=== PATIENT | male | born 1955 | race Asian ===

== ENCOUNTER 2025-06-17 13:46 | Inpatient (IN) | payer OTHER, MEDICARE ==
[~2025-06-17] VITALS: Ht 172.7 cm; Wt 83.0 kg
[2025-06-17 17:00] VITALS: BP 180/84; PULSE 77; RESP 18; TEMP 98.1; O2SAT 98
[2025-06-17 17:37] VITALS: BP 176/82
[2025-06-17] MEDS ORDERED: DEXTROSE 50%-WATER 25 GM/50 ML SYRINGE IVP PRN (18:00)
[2025-06-17 18:30] VITALS: BP 149/76
[2025-06-17 20:00] VITALS: BP 157/77; PULSE 73; RESP 18; TEMP 98.2; O2SAT 99
[2025-06-17] MEDS: ETHYL ALCOHOL 62% ANTISEPTIC NASAL SANITIZER 0.6 ML AMPUL NASAL SCH (20:26)
[2025-06-17] MEDS: SENNOSIDES 8.6 MG TABLET PO SCH (20:26)
[2025-06-17] MEDS: ROSUVASTATIN CALCIUM 20 MG TABLET PO SCH (20:27)
[2025-06-17] MEDS: DOCUSATE SODIUM 100 MG CAPSULE PO SCH (20:27)
[2025-06-17] MEDS: LATANOPROST 0.005% 2.5 ML OPHTHALMIC SOLUTION OU SCH (20:27)
[2025-06-17] MEDS: INSULIN LISPRO 100 UNITS/ML SQ PRN (20:40)
[2025-06-17] MEDS: INSULIN GLARGINE,HUM.REC.ANLOG 100 UNITS/ML SQ SCH (20:41)
[2025-06-17] MEDS: MELATONIN 3 MG TABLET PO PRN (20:47)
[2025-06-17 21:11] LABS: GLUCOMETER DEV NAME(LOC) 2WR.1D; GLUCOSE,POINT OF CARE 231 MG/DL (70-110)
[2025-06-18 06:51] LABS: GLUCOMETER DEV NAME(LOC) 2WR.1D; GLUCOSE,POINT OF CARE 144 MG/DL (70-110)
[2025-06-18 07:39] LABS: PLATELET COUNT (AUTO) 240 K/uL (150-450); RED BLOOD CELL COUNT(AUTO) 4.69 MIL/uL (4.50-5.90); RED CELL DISTRIBUTION WIDTH 13.7 % (11.5-14.5); WHITE BLOOD COUNT (AUTO) 7.1 K/uL (4.5-11.0)
[2025-06-18 08:08] LABS: ASPARTATE AMINOTRANSFERASE 21 U/L (15-37); CALCIUM, TOTAL 8.9 mg/dL (8.8-10.5); CREATININE 1.01 mg/dL (0.60-1.30); GLOMERULAR FILTR. RATE CALC > 60 mL/min (>60); GLUCOSE,RANDOM 151 mg/dL (70-110); SODIUM SERUM 139 mmol/L (136-145); TOTAL PROTEIN, SERUM 6.7 g/dL (6.4-8.2); UREA NITROGEN, BLOOD 20 mg/dL (7-18)
[2025-06-18 08:15] VITALS: BP 150/78; PULSE 76; RESP 18; TEMP 98.2; O2SAT 96
[2025-06-18] MEDS: MetFORMIN HCL 500 MG ER TABLET PO SCH (08:35)
[2025-06-18] MEDS: ASPIRIN 81 MG CHEWABLE TABLET PO SCH (08:36)
[2025-06-18] MEDS: PIOGLITAZONE HCL 45 MG TABLET PO SCH (08:36)
[2025-06-18] MEDS: EMPAGLIFLOZIN 25 MG TABLET PO SCH (08:36)
[2025-06-18] MEDS: INSULIN GLARGINE,HUM.REC.ANLOG 100 UNITS/ML SQ SCH (08:39)
[2025-06-18 10:54] VITALS: O2SAT 96
[2025-06-18 12:26] LABS: GLUCOMETER DEV NAME(LOC) 2WR.1D; GLUCOSE,POINT OF CARE 119 MG/DL (70-110)
[2025-06-18 14:03] VITALS: BP 146/69; PULSE 77; RESP 18
[2025-06-18] MEDS: ACETAMINOPHEN 325 MG TABLET PO PRN (14:03)
[2025-06-18 18:15] LABS: GLUCOMETER DEV NAME(LOC) 2WR.1D; GLUCOSE,POINT OF CARE 96 MG/DL (70-110)
[2025-06-18 20:00] VITALS: BP 151/69; PULSE 77; RESP 18; TEMP 98.2; O2SAT 97
[2025-06-18] MEDS: TAMSULOSIN HCL 0.4 MG CAPSULE PO SCH (21:14)
[2025-06-18 21:55] LABS: GLUCOMETER DEV NAME(LOC) 2WR.2C; GLUCOSE,POINT OF CARE 204 MG/DL (70-110)
[2025-06-19 06:50] LABS: GLUCOMETER DEV NAME(LOC) 2WR.1D; GLUCOSE,POINT OF CARE 89 MG/DL (70-110)
[2025-06-19 07:53] VITALS: BP 154/80; PULSE 74; RESP 18; TEMP 97.7; O2SAT 98
[2025-06-19 08:36] VITALS: O2SAT 98
[2025-06-19 09:38] VITALS: BP 156/79; PULSE 80
[2025-06-19 11:55] LABS: GLUCOMETER DEV NAME(LOC) 2WR.2C; GLUCOSE,POINT OF CARE 171 MG/DL (70-110)
[2025-06-19 12:25] VITALS: BP 169/68; PULSE 74
[2025-06-19] MEDS: LOSARTAN POTASSIUM 25 MG TABLET PO SCH (12:59)
[2025-06-19 14:39] VITALS: BP 152/74; PULSE 76
[2025-06-19 17:31] LABS: GLUCOMETER DEV NAME(LOC) 2WR.1D; GLUCOSE,POINT OF CARE 114 MG/DL (70-110)
[2025-06-19 17:31] LABS: GLUCOMETER DEV NAME(LOC) 2WR.1D; GLUCOSE,POINT OF CARE 67 MG/DL (70-110)
[2025-06-19] MEDS: INFLUENZA VIRUS VACCINE TVS (6MO+) 2025-26/PF 45 MCG/0.5 ML SYRINGE IM. ONE (19:51)
[2025-06-19 20:59] VITALS: BP 150/66; PULSE 80; RESP 18; TEMP 98.6; O2SAT 99
[2025-06-19 21:05] LABS: GLUCOMETER DEV NAME(LOC) 2WR.2C; GLUCOSE,POINT OF CARE 235 MG/DL (70-110)
[2025-06-20 07:26] LABS: GLUCOMETER DEV NAME(LOC) 2WR.1D; GLUCOSE,POINT OF CARE 159 MG/DL (70-110)
[2025-06-20 08:00] VITALS: BP 145/75; PULSE 76; RESP 19; TEMP 97.9; O2SAT 96
[2025-06-20 11:31] LABS: GLUCOMETER DEV NAME(LOC) 2WR.2C; GLUCOSE,POINT OF CARE 115 MG/DL (70-110)
[2025-06-20 16:36] LABS: GLUCOMETER DEV NAME(LOC) 2WR.1D; GLUCOSE,POINT OF CARE 112 MG/DL (70-110)
[2025-06-20 19:58] VITALS: BP 164/73; PULSE 78; RESP 18; TEMP 98.4; O2SAT 99
[2025-06-20 20:00] VITALS: O2SAT 99
[2025-06-20 20:58] VITALS: BP 156/70; PULSE 74; RESP 18
[2025-06-20 21:50] LABS: GLUCOMETER DEV NAME(LOC) 2WR.1D; GLUCOSE,POINT OF CARE 94 MG/DL (70-110)
[2025-06-21 07:31] LABS: GLUCOMETER DEV NAME(LOC) 2WR.2C; GLUCOSE,POINT OF CARE 68 MG/DL (70-110)
[2025-06-21 07:46] LABS: GLUCOMETER DEV NAME(LOC) 2WR.2C; GLUCOSE,POINT OF CARE 89 MG/DL (70-110)
[2025-06-21 08:00] VITALS: BP 162/80; PULSE 79; RESP 18; TEMP 97.9; O2SAT 100
[2025-06-21 12:51] LABS: GLUCOMETER DEV NAME(LOC) 2WR.2C; GLUCOSE,POINT OF CARE 118 MG/DL (70-110)
[2025-06-21 16:55] LABS: GLUCOMETER DEV NAME(LOC) 2WR.2C; GLUCOSE,POINT OF CARE 64 MG/DL (70-110)
[2025-06-21 17:15] LABS: GLUCOMETER DEV NAME(LOC) 2WR.2C; GLUCOSE,POINT OF CARE 76 MG/DL (70-110)
[2025-06-21 17:45] LABS: GLUCOMETER DEV NAME(LOC) 2WR.2C; GLUCOSE,POINT OF CARE 109 MG/DL (70-110)
[2025-06-21 20:14] VITALS: BP 148/64; PULSE 68; RESP 18; TEMP 98.4; O2SAT 98
[2025-06-22 02:41] LABS: GLUCOMETER DEV NAME(LOC) 2WR.1D; GLUCOSE,POINT OF CARE 146 MG/DL (70-110)
[2025-06-22 07:01] LABS: GLUCOMETER DEV NAME(LOC) 2WR.2C; GLUCOSE,POINT OF CARE 82 MG/DL (70-110)
[2025-06-22 07:23] LABS: CREATININE 0.98 mg/dL (0.60-1.30); GLOMERULAR FILTR. RATE CALC > 60 mL/min (>60); GLUCOSE,RANDOM 84 mg/dL (70-110); SODIUM SERUM 139 mmol/L (136-145); UREA NITROGEN, BLOOD 16 mg/dL (7-18)
[2025-06-22 07:24] LABS: CALCIUM, TOTAL 8.8 mg/dL (8.8-10.5)
[2025-06-22] MEDS: LOSARTAN POTASSIUM 50 MG TABLET PO SCH (07:57)
[2025-06-22] MEDS: INSULIN GLARGINE,HUM.REC.ANLOG 100 UNITS/ML SQ SCH (07:59)
[2025-06-22 08:00] VITALS: BP 156/75; PULSE 63; RESP 18; TEMP 98.4; O2SAT 99
[2025-06-22 13:00] LABS: GLUCOMETER DEV NAME(LOC) 2WR.2C; GLUCOSE,POINT OF CARE 237 MG/DL (70-110)
[2025-06-22 19:11] LABS: GLUCOMETER DEV NAME(LOC) 2WR.1D; GLUCOSE,POINT OF CARE 125 MG/DL (70-110)
[2025-06-22 20:00] VITALS: BP 158/65; PULSE 69; RESP 18; TEMP 97.5; O2SAT 97
[2025-06-23 00:12] LABS: GLUCOMETER DEV NAME(LOC) 2WR.1D; GLUCOSE,POINT OF CARE 124 MG/DL (70-110)
[2025-06-23 06:30] VITALS: BP 153/69; PULSE 83; RESP 18; O2SAT 96
[2025-06-23 06:56] LABS: GLUCOMETER DEV NAME(LOC) 2WR.1D; GLUCOSE,POINT OF CARE 206 MG/DL (70-110)
[2025-06-23 08:05] VITALS: BP 154/68; PULSE 74; RESP 17; TEMP 98; O2SAT 100
[2025-06-23] MEDS: LOSARTAN POTASSIUM 50 MG TABLET PO SCH (08:15)
[2025-06-23] MEDS: INSULIN GLARGINE,HUM.REC.ANLOG 100 UNITS/ML SQ SCH (08:20)
[2025-06-23 11:53] VITALS: O2SAT 100
[2025-06-23 17:11] LABS: GLUCOMETER DEV NAME(LOC) 2WR.1D; GLUCOSE,POINT OF CARE 148 MG/DL (70-110)
[2025-06-23 20:00] VITALS: BP 159/79; PULSE 74; RESP 18; TEMP 99; O2SAT 97
[2025-06-23 21:21] LABS: GLUCOMETER DEV NAME(LOC) 2WR.1D; GLUCOSE,POINT OF CARE 91 MG/DL (70-110)
[2025-06-24] MEDS ORDERED: EMPA25TA3 PO ×2 (02:56→12:03)
[2025-06-24] MEDS ORDERED: METF-81 PO ×2 (02:56→12:03)
[2025-06-24] MEDS ORDERED: LOSA-382 PO ×2 (02:56→12:03)
[2025-06-24] MEDS ORDERED: PIOG45TA4 PO ×2 (02:56→12:03)
[2025-06-24] MEDS ORDERED: INSLAN SQ ×2 (02:56→12:03)
[2025-06-24] MEDS ORDERED: AMLO-258 PO ×2 (02:56→12:03)
[2025-06-24] MEDS ORDERED: TAMS0.4C94 PO ×2 (02:56→12:03)
[2025-06-24] MEDS ORDERED: XALA2.5OS OU ×2 (02:56→12:03)
[2025-06-24] MEDS ORDERED: ROSU20TA98 PO ×3 (02:56→12:03)
[2025-06-24] MEDS ORDERED: ASPI-1450 PO ×2 (02:56→12:03)
[2025-06-24] MEDS ORDERED: GLIP10TA17 PO (02:56)
[2025-06-24 05:30] VITALS: TEMP 98.6
[2025-06-24 07:05] LABS: GLUCOMETER DEV NAME(LOC) 2WR.2C; GLUCOSE,POINT OF CARE 128 MG/DL (70-110)
[2025-06-24 08:00] VITALS: BP 169/76; PULSE 76; RESP 19; TEMP 98; O2SAT 99
[2025-06-24 08:40] VITALS: BP 149/66; PULSE 73; RESP 19
[2025-06-24] MEDS ORDERED: SENN-374 PO (12:03)
[2025-06-24] MEDS ORDERED: DOCU-385 PO (12:03)
[2025-06-24] MEDS ORDERED: INSU100V SQ (12:03)
[2025-06-24] MEDS ORDERED: GLIP10TA16 PO (12:03)
[2025-06-24 12:36] LABS: GLUCOMETER DEV NAME(LOC) 2WR.2C; GLUCOSE,POINT OF CARE 171 MG/DL (70-110)
[2025-06-24 20:35] VITALS: BP 168/65; PULSE 83; RESP 18; TEMP 98.6; O2SAT 98
[2025-06-24 20:46] LABS: GLUCOMETER DEV NAME(LOC) 2WR.2C; GLUCOSE,POINT OF CARE 183 MG/DL (70-110)
[2025-06-24 20:50] LABS: GLUCOMETER DEV NAME(LOC) 2WR.1D; GLUCOSE,POINT OF CARE 135 MG/DL (70-110)
[2025-06-25 00:01] VITALS: BP 168/67; PULSE 78
[2025-06-25 05:00] VITALS: BP 163/71; PULSE 73
[2025-06-25 08:00] VITALS: BP 160/80; PULSE 76; RESP 19; TEMP 97.6; O2SAT 98
[2025-06-25 08:06] LABS: GLUCOMETER DEV NAME(LOC) 2WR.2C; GLUCOSE,POINT OF CARE 130 MG/DL (70-110)
[2025-06-25 09:53] VITALS: BP 149/78; PULSE 82
[2025-06-25] MEDS ORDERED: HYDR25TA2 PO (10:00)
== END 2025-06-25 10:46 | disposition home health service (06) | DRG 57 ==
LOC: 2WR 17:10
PROVIDERS: ADMIT Physical Medicine & Rehabilitation; ATTEND Physical Medicine & Rehabilitation
DX: I69.154 Hemiplegia and hemiparesis following nontraumatic intracerebral hemorrhage affecting left non-dominant side (principal); N17.9 Acute kidney failure, unspecified; E11.22 Type 2 diabetes mellitus with diabetic chronic kidney disease; E78.5 Hyperlipidemia, unspecified; F17.200 Nicotine dependence, unspecified, uncomplicated; H40.9 Unspecified glaucoma; I12.9 Hypertensive chronic kidney disease with stage 1 through stage 4 chronic kidney disease, or unspecified chronic kidney disease; N18.30 Chronic kidney disease, stage 3 unspecified; N40.1 Benign prostatic hyperplasia with lower urinary tract symptoms; Z74.09 Other reduced mobility; R33.8 Other retention of urine; R41.89 Other symptoms and signs involving cognitive functions and awareness; R53.1 Weakness; R51.9 Headache, unspecified; Z79.899 Other long term (current) drug therapy; Z79.82 Long term (current) use of aspirin
CPT/HCPCS: 80048; 80053; 82962; 85025; 87081; 92507; 92523; 93970; 97112; 97116; 97163; 97167; 97530; 97535; 99366; J1815